=== PATIENT | female | born 1995 | race Caucasian/White ===

== ENCOUNTER → 2020-07-26 | Outpatient (CLI) | payer BC ==
--- NOTE | 2020-07-26 16:14 | DIREP ---
PROCEDURE:NM GALLBLADDER SCAN/MENON COMPARISON:None. INDICATIONS:RUQ PAIN, RLQ PAIN, LLQ PAIN TECHNIQUE:After obtaining the patient's consent, 8 oz of Ensure Plus was administered and images obtained sequentially for one hour. PHARMACEUTICAL(S):7.87 mCi Tc-99m ELINOR derivative. 8 oz of Ensure Plus FINDINGS: LIVER:Normal. BILIARY DUCTS:Normal. Visualized at 15 minutes. GALLBLADDER:Normal. Visualized at 15 minutes INTESTINE:Normal. Visualized at 25 minutes EJECTION FRACTION:35 %. Normal is greater than 50% at 15-20 minutes, EF between 35%-50% is equivocal. Administration of fatty meal resulted in no symptoms. CONCLUSION: 1. Hepatobiliary scan with gallbladder ejection fraction demonstrates normal uptake. 2. There is borderline low gallbladder ejection fraction measured at 35%. 3. Patient was asymptomatic following fatty meal. Dictated by: Jaison Sarah MD on 07/26/2020 at 04:11 PM
== END | disposition home or self-care (01) ==
LOC: RAD 12:50
PROVIDERS: ATTEND Nurse Practitioner
DX: R10.11 Right upper quadrant pain (principal); R10.31 Right lower quadrant pain; R10.32 Left lower quadrant pain
CPT/HCPCS: 78227; A9537

== ENCOUNTER → 2023-09-21 | Day surgery (SDC) | payer BC ==
[2023-09-21] VITALS (9 sets, daily range): BP systolic 95–116; BP diastolic 59–79; PULSE 59–85; RESP 16; TEMP 97.1–97.9; O2SAT 91–100
[~2023-09-21] VITALS: Ht 170.2 cm; Wt 106.6 kg
[~2023-09-21] MED LIST: DECADRON ONE; DIPRIVAN IV ONE; ESCI20TA10 PO; LACTATED RINGERS 1,000 ML IV SCH; LASIX IV ONE; LASIX ONE; LEVO88TA5 PO; NS 1000ML 1,000 ML IV SCH; NS 1000ML 1,000 ML ONE; SUBLIMAZE 100MCG/2ML ONE; TAMS-14 PO; TORADOL ONE; TRAM50TA PO; VERSED ONE; XYLOCAINE ONE; ZOFRAN ONE
[2023-09-21 08:22] LABS: BASOPHIL # 0.1 10^3/uL (0.0-0.1); BASOPHIL % 0.8 % (0.0-0.2); EOSINOPHIL # 0.2 10^3/uL (0.0-0.2); EOSINOPHIL % 3.8 % (0.0-5.0); HEMATOCRIT(ML) 41.1 % (36.0-46.0); HEMOGLOBIN 13.3 g/dL (12.0-15.0); LYMPHOCYTES % 14.3 % (24.0-44.0); MEAN CORP HGB 27.8 pg (26-34); MEAN CORP HGB CONCENTRATION 32.4 g/dL (33-36.5); MEAN CORP VOLUME 85.8 fL (78-100); MONOCYTES # 0.4 10^3/uL (0.3-0.8); MONOCYTES % 6.7 % (5.0-12.0); NEUTROPHIL # 4.7 10^3/uL (1.8-7.7); NEUTROPHILS % 74.2 % (41.0-85.0); PLATELET COUNT 296 10^3/uL (150-400); RED BLOOD CELL 4.79 10^6/uL (4.00-5.20); RED CELL DISTRIBUTION WIDTH 14.9 % (11.5-14.5); WHITE BLOOD CELL 6.3 10^3/uL (4.5-11.0)
[2023-09-21 08:23] LABS: +ADD MANUAL DIFF(NO CHRG) NO
[2023-09-21 08:33] LABS: ANION GAP 12.2; BUN/CREATININE RATIO 15.66 (10.0-20.0); CALCIUM 9.4 mg/dL (8.4-10.5); CARBON DIOXIDE 24.3 mmol/L (20.0-32); CREATININE SERUM 0.83 mg/dL (0.59-1.40); EST GFR, NON-AA 83.1 (>/=60); POTASSIUM 3.5 mmol/L (3.6-5.2)
[2023-09-21 08:48] LABS: INR 0.9; PROTHROMBIN PROTIME 9.9 SEC (9.7-11.6)
== END | disposition home or self-care (01) ==
LOC: SDC 07:21
PROVIDERS: ATTEND Urology
DX: N20.0 Calculus of kidney (principal); F32.A Depression, unspecified; E03.9 Hypothyroidism, unspecified; Z79.899 Other long term (current) drug therapy; Z79.01 Long term (current) use of anticoagulants; Z72.89 Other problems related to lifestyle; Z90.49 Acquired absence of other specified parts of digestive tract; Z98.890 Other specified postprocedural states; Z79.890 Hormone replacement therapy
CPT/HCPCS: 50590; 85025; 36415; 80048; 85610; 85730; 84703; J7030; J1100; J3490; J1940; J2001; J2405; J2250; J1885; J3010